=== PATIENT | male | born 1945 | race Caucasian/White ===

== ENCOUNTER 2017-11-27 08:57 | Inpatient (IN) | payer OTHER ==
[~2017-11-27] VITALS: Ht 175.3 cm; Wt 117.9 kg
[2017-11-27] MEDS ORDERED: COZAAR50 MG PO (09:56)
[2017-11-27] MEDS ORDERED: ASA81 MG PO (09:56)
[2017-11-27] MEDS ORDERED: SIMVASTATIN20 MG PO (09:57)
[2017-11-27] MEDS ORDERED: CARDURA1 MG PO (09:57)
[2017-11-27] MEDS ORDERED: GABAPENTIN300 MG PO (09:57)
[2017-12-05] MEDS ORDERED: GABAPENTIN800 MG PO (12:45)
[2017-12-05] MEDS ORDERED: DOCUSATE SODIU100 MG PO (12:45)
[2017-12-05] MEDS ORDERED: AMOX-CLAV 875-1 EACH PO (12:46)
[2017-12-05] MEDS ORDERED: CLONAZEPAM1 MG PO (12:47)
[2017-12-05] MEDS ORDERED: PERCOCET 5-3251 EACH PO (12:47)
== END 2017-12-05 16:38 | disposition home or self-care (01) | DRG 460 ==
LOC: PED 12-04 05:00 → O/R 12-04 05:00 → SURH 12-04 09:00 → PED 12-04 13:54
PROVIDERS: Orthopaedic Surgery Orthopaedic Surgery of the Spine
PROC: 0SG10AJ Fusion of 2 or more Lumbar Vertebral Joints with Interbody Fusion Device, Posterior Approach, Anterior Column, Open Approach (ICD-10-PCS; 2017-12-04)
PROC: 0ST20ZZ Resection of Lumbar Vertebral Disc, Open Approach (ICD-10-PCS; 2017-12-04)
PROC: 07DS3ZZ Extraction of Vertebral Bone Marrow, Percutaneous Approach (ICD-10-PCS; 2017-12-04)
PROC: 0SG10A0 Fusion of 2 or more Lumbar Vertebral Joints with Interbody Fusion Device, Anterior Approach, Anterior Column, Open Approach (ICD-10-PCS; principal; 2017-12-04 10:15)
DX: M47.26 Other spondylosis with radiculopathy, lumbar region (principal); M51.16 Intervertebral disc disorders with radiculopathy, lumbar region; M48.061 Spinal stenosis, lumbar region without neurogenic claudication; I10 Essential (primary) hypertension; E11.9 Type 2 diabetes mellitus without complications

== ENCOUNTER 2018-07-04 13:16 | Outpatient (CLI) | payer OTHER ==
[~2018-07-04 13:16] MED LIST: AMOX-CLAV 875-1 EACH PO; ASA81 MG PO; CARDURA1 MG PO; CLONAZEPAM1 MG PO; COZAAR50 MG PO; DOCUSATE SODIU100 MG PO; GABAPENTIN300 MG PO; GABAPENTIN800 MG PO; PERCOCET 5-3251 EACH PO; SIMVASTATIN20 MG PO
== END 2018-07-04 13:21 | disposition home or self-care (01) ==
LOC: RAD 501 13:16
DX: M51.36 Other intervertebral disc degeneration, lumbar region (principal); Z98.1 Arthrodesis status

== ENCOUNTER 2020-12-19 09:00 | Inpatient (IN) | payer OTHER ==
[~2020-12-19] VITALS: Ht 175.3 cm; Wt 115.7 kg
[2020-12-19] MEDS ORDERED: TEMAZEPAM15 MG PO (10:01)
[2020-12-19] MEDS ORDERED: CATAPRES0.3 MG PO (10:02)
[2020-12-19] MEDS ORDERED: OMEGA-31000 MG PO (10:02)
[2020-12-26] MEDS ORDERED: TERAZOSIN HCL10 MG (08:03)
[2020-12-26] MEDS ORDERED: LOSARTAN-HCTZ1 EAC1 (08:03)
[2020-12-26] MEDS ORDERED: DIAZEPAM5 MG PO (10:05)
[2020-12-26] MEDS ORDERED: NEURONTIN800 MG PO (10:05)
[2020-12-26] MEDS ORDERED: AMOX-CLAV 875-1 EACH PO (10:05)
[2020-12-26] MEDS ORDERED: MEDROLPACK PO (10:05)
[2020-12-26] MEDS ORDERED: PERCOCET 5-3251 EACH PO (10:05)
[2020-12-26] MEDS ORDERED: COLACE100 MG PO (10:06)
== END 2020-12-27 13:42 | disposition home or self-care (01) | DRG 455 ==
LOC: PED 12-26 05:00 → O/R 12-26 05:00 → SURH 12-26 09:00 → PED 12-26 13:32
PROVIDERS: ADMIT Orthopaedic Surgery Orthopaedic Surgery of the Spine; ATTEND Orthopaedic Surgery Orthopaedic Surgery of the Spine
PROC: 0SG00J1 Fusion of Lumbar Vertebral Joint with Synthetic Substitute, Posterior Approach, Posterior Column, Open Approach (ICD-10-PCS; 2020-12-26)
PROC: 07DR0ZZ Extraction of Iliac Bone Marrow, Open Approach (ICD-10-PCS; 2020-12-26)
PROC: 0SG00A0 Fusion of Lumbar Vertebral Joint with Interbody Fusion Device, Anterior Approach, Anterior Column, Open Approach (ICD-10-PCS; principal; 2020-12-26 10:00)
DX: M43.16 Spondylolisthesis, lumbar region (principal)

== ENCOUNTER 2024-01-11 17:27 | Emergency (ER) | payer OTHER ==
[~2024-01-11] VITALS: Ht 172.7 cm; Wt 126.1 kg
[~2024-01-11 17:27] MED LIST changes: +CATAPRES0.3 MG PO; +COLACE100 MG PO; +DIAZEPAM5 MG PO; +LOSARTAN-HCTZ1 EAC1; +MEDROLPACK PO; +NEURONTIN800 MG PO; +OMEGA-31000 MG PO; +TEMAZEPAM15 MG PO; +TERAZOSIN HCL10 MG
[2024-01-11] MEDS ORDERED: ZIPSOR25 MG (18:02)
[2024-01-11] MEDS ORDERED: LASIX20 MG (18:02)
[2024-01-11] MEDS ORDERED: ALDACTONE25 MG PO (18:03)
[2024-01-11] MEDS ORDERED: PROMETHAZINE HCL 25 MG/ML AMPUL ONE (18:43)
[2024-01-11] MEDS ORDERED: MEPERIDINE HCL/PF 50 MG/ML VIAL IM ONE (18:45)
[2024-01-11] MEDS ORDERED: PROMETHAZINE HCL 25 MG/ML AMPUL IM ONE (18:45)
[2024-01-11 19:10] LABS: HEMATOCRIT 37.5 % (39.0-48.0); HEMOGLOBIN 12.7 g/dL (13-16.00); MEAN CELL VOLUME 88.8 fL (80.0-100.00); MEAN CORPUSCULAR HEMOGLOBIN 30.1 pg (27.00-32.0); MEAN CORPUSCULAR HGB CONC 33.9 g/dl (32.0-36.0); PLATELET COUNT 165 K/uL (150-450); RED BLOOD COUNT 4.22 M/uL (4.00-6.00); RED CELL DISTRIBUTION WIDTH 13.8 % (11.5-14.5)
[2024-01-11 19:43] LABS: INR 0.97; PARTIAL THROMBOPLASTIN TIME 26.5 SECONDS (22.0-34.0); PROTHROMBIN TIME 10.6 SECONDS (9.0-11.5)
[2024-01-11 19:54] LABS: ALBUMIN 3.5 gm/dL (3.4-5.0); BILIRUBIN TOTAL 0.6 mg/dL (0.3-1.2); CREATININE SERUM 2.09 mg/dL (0.70-1.30); GFR 30.95; GLOBULINA 3.4 G/DL (2.4-3.5); POTASSIUM 3.97 mEq/L (3.5-5.1); TOTAL PROTEIN 6.9 gm/dL (6.4-8.2)
[2024-01-11 20:02] LABS: PH,URINE 5.5 (5.0-8.0); URINE APPEARANCE Clear; URINE BILIRRUBIN Negative (NEGATIVE); URINE BLOOD Negative; URINE COLOR Yellow; URINE KETONE Negative (NEGATIVE); URINE LEUKOCYTE Negative; URINE NITRATE Negative; URINE PROTEIN 30 (NEGATIVE)
[2024-01-11 20:36] LABS: URINE GLUCOSE >=1000 MG/DL (NEGATIVE); URINE RBC 0.4 uL (0.0-20.8); URINE WBC 0.6 uL (0.0-23.2)
== END 2024-01-12 01:12 | disposition home or self-care (01) ==
LOC: ER 17:28
PROVIDERS: General Practice
DX: R10.31 Right lower quadrant pain (principal); E11.9 Type 2 diabetes mellitus without complications; I10 Essential (primary) hypertension; N28.1 Cyst of kidney, acquired; K57.30 Diverticulosis of large intestine without perforation or abscess without bleeding
CPT/HCPCS: 36415; 74176; 96372; 99283; J2250; J3490